=== PATIENT | male | born 1960 | race Caucasian/White ===

== ENCOUNTER 2018-02-01 16:05 | Inpatient (IN) | payer OTHER ==
[2018-02-01] VITALS (97 sets, daily range): BP systolic 173; BP diastolic 110; PULSE 91; TEMP 97.8; O2SAT 93–99
[~2018-02-01] VITALS: Ht 170.2 cm; Wt 104.7 kg
[2018-02-01 16:28] LABS: BASO # 0.1 (0.0-0.2); BASO % 0.6 % (0.0-2.0); EOS # 0.1 (0.0-0.7); EOS % 1.2 % (0-4.0); GRAN % 46.5 % (42.2-75.2); HEMATOCRIT 48.4 % (42.0-52.0); HEMOGLOBIN 16.7 g/dl (13.5-18.0); LYMPH # 4.5 (1.2-3.4); MEAN CELL VOLUME 91 fl (80.0-100.0); MEAN CORPUSCULAR HEMOGLOBIN 31 pg (27.0-31.0); MEAN CORPUSCULAR HGB CONC 35 g/dl (33.0-37.0); MEAN PLATELET VOLUME 9.5 fl (7.4-10.4); MONO % 9.4 % (1.7-9.3); PLATELET COUNT 255 K/mm3 (130-400); RED BLOOD COUNT 5.35 M/mm3 (4.20-5.60); REDCELL DISTRIBUTION WIDTH-CV 12.6 % (11.5-14.5)
[2018-02-01 16:35] LABS: ALANINE AMINOTRANSFERASE 113 U/L (21-72); ALBUMIN 4.3 gm/dL (3.5-5.0); ALKALINE PHOSPHATASE 86 U/L (50-136); ANION GAP 16 mmol/L (7-16); AST,SGOT 73 U/L (15-37); BILIRUBIN,TOTAL 1.3 mg/dL (0.0-1.0); BLOOD UREA NITROGEN 22 mg/dL (9-20); CALCIUM 9.5 mg/dL (8.4-10.2); CARBON DIOXIDE 21 mmol/L (22-30); CHLORIDE 108 mmol/L (98-107); CREATININE, serum 1.36 mg/dL (0.66-1.25); GLUCOSE 146 mg/dL (74-106); POTASSIUM 3.4 mmol/L (3.4-5.0); SODIUM 144 mmol/L (137-145); TOTAL PROTEIN 8.1 gm/dL (6.4-8.2)
[2018-02-01 16:38] LABS: INR 0.9 (0.8-3.0); PROTHROMBIN TIME 10.2 SECONDS (9.7-12.8)
[2018-02-01 16:40] LABS: PARTIAL THROMBOPLASTIN TIME 26.6 SECONDS (26.0-37.0)
[2018-02-01 16:46] LABS: TROPONIN-I < 0.012 ng/mL (0.000-0.034)
[2018-02-01] MEDS ORDERED: LOPRESSOR 225 MG/TAB PO (16:55)
[2018-02-01] MEDS ORDERED: DESYREL 50MG50 MG PO (16:55)
[2018-02-01 20:09] LABS: MAGNESIUM 2.1 mg/dL (1.6-2.3); PHOSPHOROUS 2.9 mg/dL (2.5-4.5)
[2018-02-01] MEDS ORDERED: HYZAAR 12.5 MG-1 TAB PO (23:43)
[2018-02-01] MEDS ORDERED: RESTORIL 1515 MG/CAP PO (23:55)
[2018-02-01] MEDS ORDERED: NORCO 325 MG-7.1 TAB PO (23:55)
[2018-02-01 23:58] LABS: PH 6 (5-8); SQUAMOUS EPITHELIAL None Seen /hpf; URINE APPEARANCE Clear; URINE BACTERIA None Seen /hpf; URINE BILIRUBIN Negative (NEGATIVE); URINE BLOOD Negative (NEGATIVE); URINE COLOR Yellow; URINE GLUCOSE 1+ (NEGATIVE); URINE KETONE Negative (NEGATIVE); URINE LEUKOCYTE ESTERASE Negative (NEGATIVE); URINE NITRATE Negative (NEGATIVE); URINE PROTEIN(semi-quant) Negative (NEGATIVE); URINE RBC 0-2 /hpf; URINE UROBILINOGEN Negative (NEGATIVE)
[2018-02-02] VITALS (257 sets, daily range): BP systolic 127–167; BP diastolic 83–969; PULSE 84–99; TEMP 97.1–99.3; O2SAT 87–100
[2018-02-02 00:03] LABS: COLLECTION METHOD CLEAN CATCH
[2018-02-02 05:21] LABS: BASO % 0.4 % (0.0-2.0); EOS # 0.1 (0.0-0.7); EOS % 0.6 % (0-4.0); GRAN # 4.8 (1.4-6.5); GRAN % 60.8 % (42.2-75.2); HEMATOCRIT 45.7 % (42.0-52.0); HEMOGLOBIN 15.5 g/dl (13.5-18.0); LYMPH # 2.4 (1.2-3.4); LYMPH % 30.4 % (20.0-51.0); MEAN CELL VOLUME 92 fl (80.0-100.0); MEAN CORPUSCULAR HEMOGLOBIN 31 pg (27.0-31.0); MEAN CORPUSCULAR HGB CONC 34 g/dl (33.0-37.0); MEAN PLATELET VOLUME 9.3 fl (7.4-10.4); MONO # 0.6 (0.1-0.6); MONO % 7.5 % (1.7-9.3); PLATELET COUNT 208 K/mm3 (130-400); RED BLOOD COUNT 4.97 M/mm3 (4.20-5.60); REDCELL DISTRIBUTION WIDTH-CV 12.8 % (11.5-14.5)
[2018-02-02 05:33] LABS: ALBUMIN 3.8 gm/dL (3.5-5.0); BILIRUBIN,TOTAL 1.3 mg/dL (0.0-1.0); CHOLESTEROL RISK RATIO 3.5; CREATININE, serum 1.08 mg/dL (0.66-1.25); POTASSIUM 3.8 mmol/L (3.4-5.0); TOTAL PROTEIN 7.1 gm/dL (6.4-8.2)
[2018-02-02 05:37] LABS: C-REACTIVE PROTEIN 0.8 mg/dL (0.0-0.9)
[2018-02-02 23:39] LABS: ANA SCREEN with REFLEX Negative (Negative)
[2018-02-03] VITALS (9 sets, daily range): BP systolic 143–179; BP diastolic 85–117; PULSE 74–107; TEMP 97.8–99.3
[2018-02-03 05:13] LABS: RPR (VDRL) Non-reactive (())
[2018-02-03 08:09] LABS: BASO # 0.1 (0.0-0.2); BASO % 0.6 % (0.0-2.0); EOS # 0.1 (0.0-0.7); EOS % 1.5 % (0-4.0); GRAN # 4.5 (1.4-6.5); GRAN % 57.7 % (42.2-75.2); HEMATOCRIT 46.5 % (42.0-52.0); HEMOGLOBIN 16.1 g/dl (13.5-18.0); LYMPH # 2.4 (1.2-3.4); LYMPH % 30.8 % (20.0-51.0); MEAN CELL VOLUME 91 fl (80.0-100.0); MEAN CORPUSCULAR HEMOGLOBIN 32 pg (27.0-31.0); MEAN CORPUSCULAR HGB CONC 35 g/dl (33.0-37.0); MEAN PLATELET VOLUME 9.2 fl (7.4-10.4); MONO # 0.7 (0.1-0.6); MONO % 9.1 % (1.7-9.3); PLATELET COUNT 234 K/mm3 (130-400); REDCELL DISTRIBUTION WIDTH-CV 12.7 % (11.5-14.5)
[2018-02-03 08:29] LABS: CALCIUM 9.1 mg/dL (8.4-10.2); CREATININE, serum 1.29 mg/dL (0.66-1.25); POTASSIUM 3.7 mmol/L (3.4-5.0)
[2018-02-03 08:40] LABS: THYROXINE (T4)-TOTAL 8.7 ug/dL (5.5-11.0)
[2018-02-03 08:53] LABS: THYROID STIMULATING HORMONE 2.19 uIU/mL (0.465-4.680)
[2018-02-03 15:15] LABS: PROTHROMBIN TIME 11.5 SECONDS (9.7-12.8)
[2018-02-03 15:20] LABS: CALCIUM 9.2 mg/dL (8.4-10.2); CREATININE, serum 1.22 mg/dL (0.66-1.25); POTASSIUM 3.9 mmol/L (3.4-5.0)
[2018-02-03 18:59] LABS: HOMOCYSTEINE 7.8 umol/L (5.5-16.2)
[2018-02-04] VITALS (8 sets, daily range): BP systolic 140–176; BP diastolic 81–108; PULSE 86–108; TEMP 97.4–98.6
[2018-02-04 08:04] LABS: FACTOR V LEIDEN MUTATION B Negative (Negative); PT G20210A MUTATION B Negative (Negative)
[2018-02-05] VITALS (9 sets, daily range): BP systolic 93–163; BP diastolic 69–103; PULSE 97–110; TEMP 98.6–98.9
[2018-02-05 04:46] LABS: BILIRUBIN,TOTAL 1.5 mg/dL (0.0-1.0); CALCIUM 9.2 mg/dL (8.4-10.2); CREATININE, serum 1.24 mg/dL (0.66-1.25); POTASSIUM 3.6 mmol/L (3.4-5.0); TOTAL PROTEIN 7.7 gm/dL (6.4-8.2)
[2018-02-05] MEDS ORDERED: GLUCOPHAGE500 MG/TAB PO (08:43)
[2018-02-05] MEDS ORDERED: HYZAAR 25 MG-101 TAB PO (08:43)
[2018-02-05] MEDS ORDERED: PLAVIX 75MG TAB75 MG PO (08:54)
[2018-02-05] MEDS ORDERED: LIPITOR20 MG PO (08:54)
[2018-02-05] MEDS ORDERED: ASPIRIN 81M81 MG/TA2 PO (08:54)
[2018-02-06 09:44] LABS: ANTI-THROMBIN III 88 % (72-128)
[2018-02-06 09:48] LABS: PROTEIN C ACTIVITY 120 % (70-150)
== END 2018-02-05 12:24 | disposition home or self-care (01) | DRG 66 ==
LOC: COL.ER 16:05 → MEDICAL 19:01 → ICU 19:01 → MEDICAL 02-02 12:48 → ICU 02-02 12:48 → MEDICAL 02-02 12:49
PROVIDERS: Emergency Medicine; Family Medicine; Internal Medicine; Internal Medicine Cardiovascular Disease; Nurse Practitioner Family; Psychiatry & Neurology Neurology
DX: I63.9 Cerebral infarction, unspecified (principal); R29.810 Facial weakness; R47.81 Slurred speech; I10 Essential (primary) hypertension; E11.9 Type 2 diabetes mellitus without complications; N28.9 Disorder of kidney and ureter, unspecified; K76.0 Fatty (change of) liver, not elsewhere classified
CPT/HCPCS: 99222-AI; 99232-AI; 99239; A9585; J0360; J1644; J1815; J2704; J7030; Q9967

== ENCOUNTER → 2019-03-08 | Outpatient (CLI) | payer OTHER ==
[~2019-03-08] MED LIST: ASPIRIN 81M81 MG/TA2 PO; DESYREL 50MG50 MG PO; GLUCOPHAGE500 MG/TAB PO; HYZAAR 12.5 MG-1 TAB PO; HYZAAR 25 MG-101 TAB PO; LIPITOR20 MG PO; LOPRESSOR 225 MG/TAB PO; NORCO 325 MG-7.1 TAB PO; PLAVIX 75MG TAB75 MG PO; RESTORIL 1515 MG/CAP PO; TOPROL XL 25MG25 MG PO
== END ==
LOC: COL.VAS 13:05
DX: Z01.810 Encounter for preprocedural cardiovascular examination (principal); C83.34 Diffuse large B-cell lymphoma, lymph nodes of axilla and upper limb

== ENCOUNTER → 2020-04-21 | Outpatient (CLI) | payer OTHER | LOC: ZCOL.LAB 16:35 | DX: Z20.828 Contact with and (suspected) exposure to other viral communicable diseases (principal) ==

== ENCOUNTER → 2020-11-19 | Outpatient (CLI) | payer OTHER | LOC: COL.RAD 14:33 | DX: N13.2 Hydronephrosis with renal and ureteral calculous obstruction (principal); K76.0 Fatty (change of) liver, not elsewhere classified ==

== ENCOUNTER 2021-05-29 10:20 | Emergency (ER) | payer OTHER ==
[~2021-05-29] VITALS: Ht 172.7 cm; Wt 102.3 kg
[2021-05-29 11:52] VITALS: BP 136/74; PULSE 74; TEMP 97.8
== END 2021-05-29 11:54 | disposition home or self-care (01) ==
LOC: COL.ER 10:20
DX: M70.22 Olecranon bursitis, left elbow (principal); I10 Essential (primary) hypertension; E11.9 Type 2 diabetes mellitus without complications; Z86.73 Personal history of transient ischemic attack (TIA), and cerebral infarction without residual deficits; Z79.84 Long term (current) use of oral hypoglycemic drugs; Z79.899 Other long term (current) drug therapy; X50.1XXA Overexertion from prolonged static or awkward postures, initial encounter